=== PATIENT | male | born 1985 | race Caucasian/White ===

== ENCOUNTER → 2025-09-12 | Outpatient (CLI) | payer OTHER, SELFPAY ==
--- NOTE | 2025-09-12 09:39 | RAD_ITS ---
PROCEDURE: L/S SPINE MIN 4 VIEWS 09/12/2025 REASON FOR EXAM: PSORIATIC ARTHROPATHY TECHNIQUE: Procedure Code: RADSPLS Modality: DX Procedure: L/S SPINE MIN 4 VIEWS COMPARISON: None FINDINGS: Lumbar spine four views. There is levocurvature of the lumbar region with less than 10 degrees of variance, which can indicate spasm. Vertebral body height and alignment are maintained. There is loss of disc height at L1-2 and L3-4. There is moderate facet sclerosis. Mineralization is normal. There is no visible atherosclerosis. RAD/L/S Spine Min 4 Views IMPRESSION: There is levocurvature of the lumbar region with less than 10 degrees of varian ce, which can indicate spasm. There is loss of disc height at L1-2 and L3-4. Reading Location: [facility]
--- NOTE | 2025-09-12 09:39 | RAD_ITS ---
PROCEDURE: CHEST PA AND LATERAL 09/12/2025 REASON FOR EXAM: PSORIATIC ARTHROPATHY TECHNIQUE: Procedure Code: RADCXR Modality: DX Procedure: CHEST PA AND LATERAL COMPARISON: None FINDINGS: Heart size and mediastinal configuration are within normal limits. There is no focal infiltrate or consolidation. There is no pneumothorax or effusion. There is no acute bony abnormality. There is no visible atherosclerosis. RAD/Chest PA and Lateral IMPRESSION: No acute process is identified in the chest. Reading Location: [facility]
[2025-09-12 12:27] LABS: Hematocrit 49.8 % (40-54); Hemoglobin 16.5 g/dL (13.0-16.5); Immature Granulocytes Count 0.050 X10^3/uL (0.0-0.0); Mean Corp Hgb Conc 33.1 g/dL (32-36); Mean Corpuscular Volume 92.1 fL (80-94); Mean Platelet Vol. 9.9 fl (6.2-12.0); NRBC Flagged by Analyzer 0 % (0-5); Platelet Count 394 K/mm3 (150-450); RBC Distribution Width CV 13.3 % (11.6-14.6); RBC Distribution Width SD 44.8 fl (35.1-43.9); Red Blood Count 5.41 M/mm3 (4.6-6.2); White Blood Count 11.2 K/mm3 (4.4-11.0)
[2025-09-12 12:31] LABS: AST(SGOT) 26 U/L (<=37); Alanine Aminotransfer ALT/SGPT 29 U/L (<=46); Albumin, Serum 4.6 g/dL (3.5-5.0); Alkaline Phosphatase 81 U/L (40-129); Anion Gap 10 (5-15); BUN 13 mg/dL (4-19); BUN/Creat Ratio 14.1 RATIO (10-20); Calcium,Total 9.7 mg/dL (7.6-11.0); Carbon Dioxide 27.1 mmol/L (21.0-32.0); Chloride 101 mmol/L (98-108); Globulin 3.1 g/dL (2.2-4.2); Glucose 106 mg/dL (70-99); Potassium 4.1 mmol/L (3.3-5.1)
[2025-09-12 13:00] LABS: CRP < 3.00 mg/L (0.0-3.0)
[2025-09-15 04:07] LABS: QNTFERON TB Mitogen Value > 10.00 IU/mL (.); QNTFERON TB Nil Value 0.03 IU/mL (.); QNTFERON TB1+ Ag Value 0.02 IU/mL (.); QNTFERON TB2+ Ag Value 0.03 IU/mL (.); QNTIFERON TB Positive Criteria Negative (Negative)
== END | disposition home or self-care (01) ==
LOC: MTLAB 09:36
PROVIDERS: PCP Family Medicine; Referring Provider Internal Medicine Rheumatology; Visit Provider Internal Medicine Rheumatology
DX: L40.59 Other psoriatic arthropathy (principal); Z79.899 Other long term (current) drug therapy; L40.8 Other psoriasis; I10 Essential (primary) hypertension; E78.5 Hyperlipidemia, unspecified
CPT/HCPCS: 36415; 71046; 72110; 80053; 85025; 85652; 86140; 86200; 86431; 86480